=== PATIENT | female | born 1965 | race Caucasian/White ===

== ENCOUNTER 2017-03-13 20:44 | Emergency (ER) | payer OTHER ==
[~2017-03-13] VITALS: Ht 167.6 cm; Wt 74.8 kg
[~2017-03-13 20:44] MED LIST: CALCIUM CARBON500 M2 PO; CYTOMEL25 MC1 PO; SYNTHROID50 MCG PO; TRI-LINYAH TAB1 EACH PO; TYLENOL WITH C1 EACH PO; ZOLPIDEM TARTRA10 M1 PO
--- NOTE | 2017-03-13 20:52 | ED PSYCHIATRIC COMPLAINT ---
History of Present Illness General Chief Complaint: Psychiatric Related Complaint Stated Complaint: FADI ALCANTAR Source: patient, EMS, police Exam Limitations: no limitations Vital Signs & Intake/Output Vital Signs & Intake/Output Vital Signs Date Time Temp Pulse Resp B/P B/P Pulse O2 O2 Flow FiO2 Mean Ox Delivery Rate 03/14 0637 98.1 80 18 152/80 98 Room Air 03/14 0506 Room Air 03/14 0430 98.2 98 18 146/79 97 Room Air 03/14 0236 98.6 103 16 138/57 95 Room Air 03/14 0032 98.8 82 18 171/75 98 Room Air 03/13 2312 Room Air 03/13 2053 97.7 88 20 199/98 98 Room Air ED Intake and Output 03/14 0000 03/13 1200 Intake Total Output Total Balance Patient 165 lb Weight Weight Reported by Patient Measurement Method Allergies Coded Allergies: acetaminophen (From TYLENOL-CODEINE) (constipation 01/17/16) aripiprazole (From ABILIFY) (UNKNOWN 09/21/15) codeine (From TYLENOL-CODEINE) (constipation 01/17/16) lactose (UPSET STOMACH 09/23/15) Triage Nurses Notes Reviewed? yes Onset: Abrupt Duration: hour(s):, constant, continues in ED Timing: recent history HPI: 52-year-old female comes into the emergency room for further evaluation of suicidal comments. Patient reports that she is currently going through a divorce with her . She reports that she was just talking with the neighbor. She was very unclear as to the comments that she may but the report was that she made some suicidal homicidal comments involving the use of a gun that her owns. She is unclear as to who she said history. She reports that she did not say this to anybody and was asking how I knew but did admit that she said something along those lines. She denies any alcohol or drug use. Denies any prior history of psychiatric disease. Said she's never been admitted before. Patient was brought in on PEER by the police. ([place],Cristhian) Reconcile Medications Calcium Carbonate 500 MG TABLET 600 MG PO BID CALCIUM SUPPLEMENT Levothyroxine Sodium 137 MCG TABLET 1 TAB PO DAILY THYROID (Reported) Norgestimate-Ethinyl Estradiol (Tri-Linyah Tablet) 1 EACH TABLET 1 TAB PO DAILY CONTROL (Reported) Zolpidem Tartrate 10 MG TABLET 0.5 TAB PO QPM SLEEP (Reported) (Olaf Bueno DO) Past History Travel History Traveled to [place] past 21 day No Medical History Any Pertinent Medical History? see below for history Neurological: BAEZA'S PALSY EENT: POST NASAL DRIP Cardiovascular: NONE Respiratory: NONE Gastrointestinal: GERD Hepatic: NONE Renal: NONE Musculoskeletal: NONE Psychiatric: NONE Endocrine: hypothyroidism, HYPOGLYCEMIA Blood Disorders: NONE Cancer(s): thyroid cancer WORKGROUP LEADER/Reproductive: NONE History of MRSA: No History of VRE: No History of CDIFF: No Surgical History Surgical History: non-contributory Psychosocial History What is your primary language Welsh Family History Hx Contributory? No (Cristhian Stevenson) Review of Systems Review of Systems Constitutional: Reports: no symptoms. EENTM: Reports: no symptoms. Respiratory: Reports: no symptoms. Cardiovascular: Reports: no symptoms. GI: Reports: no symptoms. Genitourinary: Reports: no symptoms. Musculoskeletal: Reports: no symptoms. Skin: Reports: no symptoms. Neurological/Psychological: Reports: see HPI. Hematologic/Endocrine: Reports: no symptoms. Immunologic/Allergic: Reports: no symptoms. All Other Systems: Reviewed and Negative (Cristhian Stevenson) Physical Exam Physical Exam General Appearance: alert, awake, mild distress Head: atraumatic Eyes: Bilateral: normal appearance. Ears, Nose, Throat: normal ENT inspection, hearing grossly normal Neck: normal inspection Respiratory: no respiratory distress Extremities: normal range of motion Neurological/Psychiatric: awake, depressed affect Appearance/Memory/Insight: appropriate appearance Behavoir/Eye Contact/Speech: avoids eye contact, cooperative Thoughts/Hallucinations: no apparent hallucination Skin: intact, normal color, warm/dry SAD PERSONS Done? unobtained due to conditi (Cristhian Stevenson) Progress Differential Diagnosis: dementia, drug intoxication, drug overdose, drug withdrawal, electrolyte abnormality, depression, anxiety, Plan of Care: Orders Procedure Date/time Status Regular Diet 03/14 B Active ED CRISIS PSYCH CONSULT 03/13 2133 Active Continuous Observation Monitor 03/13 2051 Active URINE DRUGS OF ABUSE 03/13 2051 Complete ETHANOL 03/13 2051 Complete COMPREHENSIVE METABOLIC PANEL 03/13 2051 Complete CBC WITHOUT DIFFERENTIAL 03/13 2051 Complete Current Medications Sig/Jenni Start time Last Medication Dose Stop Time Status Admin Levothyroxine Sodium 0.137 MG ONCE ONE 03/15 0900 AC (Synthroid) 03/15 0901 Laboratory Tests 03/14/17 0129: Urine Opiates Screen < 100.00, Methadone Screen < 40, Barbiturate Screen < 60, Ur Phencyclidine Scrn < 6.00, Amphetamines Screen < 100, U Benzodiazepines Scrn < 85, Urine Cocaine Screen < 50, Urine Cannabis Screen < 5.00 03/13/17 2100: Anion Gap 13, Estimated GFR > 60, BUN/Creatinine Ratio 17.5, Glucose 118 H, Calcium 8.9, Total Bilirubin 0.2, AST 21, ALT 34, Alkaline Phosphatase 69, Total Protein 7.1, Albumin 3.9, Globulin 3.2, Albumin/Globulin Ratio 1.2, CBC w Diff NO MAN DIFF REQ, RBC 4.31, MCV 93.2, MCH 30.7, MCHC 33.0, RDW 13.1, MPV 11.3 H, Gran % 66.5, Lymphocytes % 21.8, Monocytes % 8.1, Eosinophils % 2.5, Basophils % 1.1, Absolute Granulocytes 5.4, Absolute Lymphocytes 1.8, Absolute Monocytes 0.7 H, Absolute Eosinophils 0.2, Absolute Basophils 0.1, Serum Alcohol < 10.0 Hand-Off Endorsed To: Bharat Hurtado MD Endorsed Time: 003 Pending: consult (crisis) (Cristhian Stevenson) Hand-Off Endorsed To: Olaf Bueno DO Endorsed Time: 0700 Pending: consult (Bharat Hurtado MD) Departure Departure Disposition: STILL A PATIENT Condition: Stable Clinical Impression Primary Impression: Suicidal ideation Referrals: Lakeshia Hodge MD Departure Forms: Customer Survey General Discharge Information (Cristhian Stevenson) PA/FINANCIAL OPERATIONS CLERK Co-Sign Statement Statement: ED Attending supervision documentation- [X] I saw and evaluated the patient. I have also reviewed all the pertinent lab results and diagnostic results. I agree with the findings and the plan of care as documented in the PA's/FINANCIAL OPERATIONS CLERK's documentation. [X] I have reviewed the ED Record and agree with the PA's/FINANCIAL OPERATIONS CLERK's documentation. [] Additions or exceptions (if any) to the PAs/FINANCIAL OPERATIONS CLERK's note and plan are summarized below: [] (Bryant SALCEDO,Bharat Castañeda) Departure Comments 03/14/17 9 AM Patient signed out to me by Dr. Hurtado. She is pending disposition by crisis. (Olaf Bueno DO)
[2017-03-13 21:13] LABS: ABSOLUTE BASOPHIL COUNT 0.1 /CUMM (0.0-0.2); ABSOLUTE EOSINOPHIL COUNT 0.2 /CUMM (0.0-0.7); ABSOLUTE GRANULOCYTE CT 5.4 /CUMM (1.4-6.5); ABSOLUTE LYMPH COUNT 1.8 /CUMM (1.2-3.4); ABSOLUTE MONOCYTE COUNT 0.7 /CUMM (0.10-0.60); BASOPHIL % 1.1 % (0.0-2.0); EOSINOPHIL % 2.5 % (0-5); GRANULOCYTE % 66.5 % (42.2-75.2); HEMATOCRIT 40.2 % (37-47); MEAN CORPUSCULAR HGB 30.7 PG (27.0-31.0); MEAN CORPUSCULAR VOLUME 93.2 FL (81.0-99.0); MEAN PLATELET VOLUME 11.3 FL (7.4-10.4); PLATELET COUNT 197 /CUMM (130-400); RBC DISTRIBUTION WIDTH 13.1 % (11.5-14.5); RED BLOOD CELL CT 4.31 /CUMM (4.20-5.40); WHITE BLOOD CELL COUNT 8.1 /CUMM (4.8-10.8)
[2017-03-14] MEDS ORDERED: LEVOTHYROXINE137 MCG PO (01:33)
--- NOTE | 2017-03-14 09:12 | ED PSYCH CRISIS CONSULTATION ---
See Addendum Crisis Consult Basic Assessment Date of Consult: 03/14/17 Responsible Person/Accompanied By: self Insurance Authorization: Insurance #1: Insurance name: [employer] Phone number: Policy number: [id number] Group number: [id number] Authorization number: ED Provider: Patient's ED Provider: Cristhian Stevenson Primary Care Physician: Patient's PCP: Unknown PCP's Phone Number: Current Psychiatrist: most recent, Dr. Nikia Burgos, 6 months ago Chief Complaint: Psychiatric Related Complaint Patient's Quote: "I'm not 100% sure why I'm here" Present Illness: Pti s a 52 year old seperated white female BIBA on a PEER on 03/14/17. Per PEER patient made a homicidal statement towards her neighbor's and has not been on medication for the patient two years. Patient was prescribed Abilify in the past. Patient's utox was negative and patient's BAL was zero. Spoke with patient's , Wilfrid Fonseca (Randy) ([phone]). reports that the patient developed a mental illness approximately ten years ago, which he believes is paranoid schizophrenia. He reports that the patient took Abilify for a number of years and was "stable". However, two years ago pt stopped taking her medication. reports that they have been for 20+ years and this is the worst he has ever seen the pt. He reports approximately 6 months ago, he suggested that pt and he got to see her old psychiatrist, Dr. Burgos in [place]. states he told the pt that she needed to take her medication or he would divorce her because this were getting so bad. reports that the pt said "ok" to the divorce and moved out approximately 1 month ago. She is currently living alone in an apartment in [place] and he doesn't believe she is able to take care of herself. reports last night, 03/13/17, that the patient drove to the husbands house (their previously shared home) and asked for her gun stating she wanted to hurt his neighbor, Daniel Cabezas, 1st selectman of [place]. reports pt has a pistol permit and owns a gun up until last night when the police took her permit and gun. also has two guns of his own- 45mm and 380 in which he keeps locked in the safe and hides the au. Patient does have a au to the home and it was their shared home. reports he is going to change the locks on the house today , 03/14/17, as he is afraid of what his may do. reports patient was talking about hwo the 1st selectman is in the [facility] and how she was working with [employer] to prevent war. shared that he has a 100 page word document of all his 's previous "weird behaviors" over the last 10 years. He does not believe pt hears or sees anything but that she is delusional and paranoid. He shared that she threatened to kill herself 3x over the last year but was not hospitalized or seen in the ED. Today, 03/14/17, during crisis evaluation, patient was not sure why she was in the hospital. She presented as dishelved in hospital attire. Patient reports she has been very stressed out of the last year. She reports her stress comes from the divorce. Patient's thoughts were loosely associated and it was difficult to understand the patient's thought process at times. Pt denies SI/HI/AH/VH. Patient did not deny making the HI statements yesterday but is more confused about how the police knew this information when she only told her , Garrett. Patient was unable to connect on her own that her could have told the police this information. Patient reports she is not in any treatment at this time but was interested in getting a family therapist from the [facility]. She reports she is not interested in a psychiatrist. Pt reports she saw a psychiatrist in the past, Dr. Burgos for anxiety in which she was prescribed Abilify. Pt also reports she has PTSD from 10/29 as she was used to live 1/2 hour away from the [facility]. She reports [facility] her [facility] [place]. Pt reports the people in [place] are different than the people in [place] which made it hard for her to make friends and trust people. 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 She reports she doesn't trust the clients and is afraid she would be accused of "things" by male patients. Overall, patient presents as paranoid about others and her safety. She reported she has pepper spray and a pocket knife at home for safety because she is a woman living alone. Patient was oriented x3 with deficits in memory recall- able to recall 2 out of 3 items after 5-7 minutes of being told those objects. Patient has poor insight and poor judgement. Pt is gravely disabled with a history of making HI statement and attempting to obtain gun last night. Crisis discussed case with Dr. Damon and patient will be put on PEC and a bed search will be conducted as [facility]PS is full at this time. Patient's Address: [address] [place] [address] Other Phone Number: Who Do You Live With? Patient/Self Family/Informants Interviewed: spoke to Wilfrid Pitt" [phone] Allergies - Coded Allergies: acetaminophen (From TYLENOL-CODEINE) (constipation 01/17/16) aripiprazole (From ABILIFY) (UNKNOWN 09/21/15) codeine (From TYLENOL-CODEINE) (constipation 01/17/16) lactose (UPSET STOMACH 09/23/15) Current Medications - Scheduled Medications Calcium Carbonate 500 MG TABLET 600 MG PO BID CALCIUM SUPPLEMENT #60 TAB Prescribed by Violeta Medina on 10/05/15 Levothyroxine Sodium 137 MCG TABLET 1 TAB PO DAILY THYROID #30 (Reported) Entered as Reported by Jaki Amaya on 03/14/17 0133 Norgestimate-Ethinyl Estradiol (Tri-Linyah Tablet) 1 EACH TABLET 1 TAB PO DAILY CONTROL (Reported) Entered as Reported by Priti Lim on 09/21/152041 Zolpidem Tartrate 10 MG TABLET 0.5 TAB PO QPM SLEEP (Reported) Entered as Reported by Priti Lim on 09/21/152032 Laboratory Results: Laboratory Tests 03/14/17 0129: Urine Opiates Screen < 100.00, Methadone Screen < 40, Barbiturate Screen < 60, Ur Phencyclidine Scrn < 6.00, Amphetamines Screen < 100, U Benzodiazepines Scrn < 85, Urine Cocaine Screen < 50, Urine Cannabis Screen < 5.00 03/13/17 2100: Anion Gap 13, Estimated GFR > 60, BUN/Creatinine Ratio 17.5, Glucose 118 H, Calcium 8.9, Total Bilirubin 0.2, AST 21, ALT 34, Alkaline Phosphatase 69, Total Protein 7.1, Albumin 3.9, Globulin 3.2, Albumin/Globulin Ratio 1.2, CBC w Diff NO MAN DIFF REQ, RBC 4.31, MCV 93.2, MCH 30.7, MCHC 33.0, RDW 13.1, MPV 11.3 H, Gran % 66.5, Lymphocytes % 21.8, Monocytes % 8.1, Eosinophils % 2.5, Basophils % 1.1, Absolute Granulocytes 5.4, Absolute Lymphocytes 1.8, Absolute Monocytes 0.7 H, Absolute Eosinophils 0.2, Absolute Basophils 0.1, Serum Alcohol < 10.0 Past History Past Medical History Neurological: BAEZA'S PALSY EENT: POST NASAL DRIP Cardiovascular: NONE Respiratory: NONE Gastrointestinal: GERD Hepatic: NONE Renal: NONE Musculoskeletal: NONE Psychiatric: anxiety Endocrine: hypothyroidism, HYPOGLYCEMIA Blood Disorders: NONE Cancer(s): thyroid cancer MARBLE POLISHER/Reproductive: NONE Past Surgical History Surgical History: non-contributory Psychosocial History Strengths/Capabilities: reports she has a lot of hobbies- meditation, restorationism, cinda chi, quilting completed 2 years of college in arts/communication Physical Limitations (Interventions): none observed Psychiatric Treatment History Psych Treatment Psychiatric Treatment Yes Inpatient Treatment No Outpatient Treatment Yes Location of Treatment Dr. Arechiga [place] Reason for Treatment pt reports "anxiety" Dates of Treatment on and off for several years last appt approx. 6 months ago Response to Treatment poor- patient took herself off her medication (abilify) and is decompensation. reports that this is the worst he has seen her Diagnosis by History: per , "paranoid schizophrenia" per Pt, "anxiety" Substance Use/Abuse History Drug Use/Abuse Substances Used/Abused Yes Substance Used/Abused Alcohol First Use can't recall Last Used can't recall How much used/taken a little bit of wine How often not often For how long can't recall Route of use oral Substance Abuse Treatment Substance Abuse Treatment Past Substance Abuse [place] No Inpatient Treatment No Outpatient Treatment No Current Mental Status Mental Status Orientation: Person, Place (unsure why she was in ED) Affect: Variable Speech: Soft Neuro-vegetative: Concentration Poor, Energy Decreased, Helpless Appearance Appearance- Dress/Hygiene: pt presents in hospital attire with unkempt hair. 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 He reports he will change locks to house as pt currently has au to home as it was previously their shared home Lethality Ratin PTSD Checklist PTSD Score: PTSD Score: Response Value Disturbing memories,thoughts,images of stressful experience? A little bit 2 Disturbing dreams of stressful experience from past? A little bit 2 Suddenly acting/feeling as if reliving stressful experience? A little bit 2 Unpleasant feeling when reminded of stressful experience? A little bit 2 Physical reactions when reminded of stressful experience? A little bit 2 Avoid thinking/talking of stressful exp. to avoid reactions? A little bit 2 Avoid activities/situations that remind of stressful exp.? Not at all 1 Trouble remembering important parts of stressful experience? A little bit 2 Loss of interest in things that you used to enjoy? A little bit 2 Feeling distant or cut off from other people? A little bit 2 Feeling emotionally numb/unable to love those close to you? Moderately 3 Feeling as if your future will somehow be cut short? Not at all 1 Trouble falling or staying asleep? A little bit 2 Feeling irritable or having angry outbursts? A little bit 2 Having difficulty concentrating? Moderately 3 Being super alert or watchful on guard? Moderately 3 Feeling jumpy or easily startled? A little bit 2 Total 35 ED Management Sitter: Yes Restraints: No DSM5/PS Stressors/Medical Prob Diagnosis' (DSM 5, Stressors, Medical): F29 Unspecified Schizophrenia Recently moved out into her own apartment GERD Thyroid removed- on synthroid Hyperglycemia Current GAF: 21 Departure Disposition Psych Medical Clearance Date: 03/14/17 Medically Cleared at: 0830 Time Started: 0830 Time Ended: 849 Psychiatrist Consulted: Marisol SALCEDO,Jose Date Disposition Established: 03/14/17 Time Disposition Established: 904 Plan for Disposition - Modality: Bed Search Rationale for Disposition: Pt presents on PEER for HI statements towards husbands neighbor and attempting to get her gun from her husbands home. Pt denies current SI/HI and AH/VH. However, pt presents as paranoid about her safety as evidenced by reporting she has a pocket knife and pepper spray at home to protect herself. Pt has poor insight, judgement and impulse control. Pt requires inpatient hospitalization for stablization as her reports she is decompenstating quickly and he is very worried for the patient as well as his safety. Type of IP Admission: PEC Referrals Unknown (PCP/Family)
[2017-03-14 16:25] VITALS: BP 162/69
== END 2017-03-14 16:49 | disposition other institution (70) ==
LOC: ERH 20:44
PROVIDERS: Physician Assistant Medical
DX: R45.851 Suicidal ideations (principal); G51.0 Bell's palsy; K21.9 Gastro-esophageal reflux disease without esophagitis; E03.9 Hypothyroidism, unspecified; E16.2 Hypoglycemia, unspecified
CPT/HCPCS: 80307; G0480